=== PATIENT | female | born 1955 | race Two or more races ===

== ENCOUNTER 2017-12-26 12:05 | Inpatient (IN) | payer OTHER ==
[~2017-12-26] VITALS: Ht 167.6 cm; Wt 250.0 kg
[~2017-12-26 12:05] MED LIST: ARMOUR THYROID60 M1 PO; CATAFLAM50 MG PO; TRAMADOL HCL50 MG PO; VOLTAREN100 GM TP
[2017-12-26] MEDS ORDERED: LEVO-T100 MCG (12:28)
[2017-12-30] MEDS ORDERED: ULTRACET PO (13:04)
[2017-12-30] MEDS ORDERED: CIPRO XR 500 M500 MG PO (13:04)
[2017-12-30] MEDS ORDERED: PROTONIX40 MG PO (13:04)
== END 2017-12-30 16:20 | disposition home or self-care (01) | DRG 355 ==
LOC: ER 12:05 → SURH 19:31
PROVIDERS: Surgery
PROC: BW21Y0Z Computerized Tomography (CT Scan) of Abdomen and Pelvis using Other Contrast, Unenhanced and Enhanced (ICD-10-PCS; 2017-12-26)
PROC: 0WQF0ZZ Repair Abdominal Wall, Open Approach (ICD-10-PCS; principal; 2017-12-27 09:15)
PROC: 3E0F7GC Introduction of Other Therapeutic Substance into Respiratory Tract, Via Natural or Artificial Opening (ICD-10-PCS; 2017-12-28)
DX: K42.0 Umbilical hernia with obstruction, without gangrene (principal); E03.8 Other specified hypothyroidism; G89.18 Other acute postprocedural pain; J45.998 Other asthma

== ENCOUNTER 2018-07-30 14:44 | Outpatient (CLI) | payer OTHER ==
[~2018-07-30 14:44] MED LIST changes: +CIPRO XR 500 M500 MG PO; +LEVO-T100 MCG; +PROTONIX40 MG PO; +ULTRACET PO
== END 2018-07-30 16:56 | disposition home or self-care (01) ==
LOC: TOM 14:44
DX: R10.33 Periumbilical pain (principal)

== ENCOUNTER 2019-07-17 10:05 | Emergency (ER) | payer OTHER ==
[~2019-07-17] VITALS: Ht 165.1 cm; Wt 95.3 kg
[2019-07-17] MEDS ORDERED: DOXYCYCLINE HY100 M2 PO (13:27)
== END 2019-07-17 13:34 | disposition home or self-care (01) ==
LOC: ER 10:05
DX: M70.32 Other bursitis of elbow, left elbow (principal)

== ENCOUNTER 2019-07-26 12:20 | Emergency (ER) | payer OTHER ==
[~2019-07-26] VITALS: Ht 165.1 cm; Wt 95.3 kg
[~2019-07-26 12:20] MED LIST changes: +DOXYCYCLINE HY100 M2 PO
[2019-07-26] MEDS ORDERED: DICLOFENAC POTA50 MG (13:24)
[2019-07-26] MEDS ORDERED: TRAM1TAB98 (13:24)
== END 2019-07-26 17:30 | disposition home or self-care (01) ==
LOC: ER 12:20
DX: L03.114 Cellulitis of left upper limb (principal)

== ENCOUNTER 2019-08-04 12:02 | Emergency (ER) | payer OTHER ==
[~2019-08-04] VITALS: Ht 165.1 cm; Wt 95.3 kg
[~2019-08-04 12:02] MED LIST changes: +DICLOFENAC POTA50 MG; +TRAM1TAB98
== END 2019-08-04 19:27 | disposition home or self-care (01) ==
LOC: ER 12:02
DX: L03.114 Cellulitis of left upper limb (principal); M70.32 Other bursitis of elbow, left elbow